=== PATIENT | male | born 2005 | race Caucasian/White ===

== ENCOUNTER 2025-01-13 08:51 | Inpatient (IN) | payer OTHER, SELFPAY ==
[2025-01-13] VITALS (14 sets, daily range): BP systolic 115–155; BP diastolic 63–109; BMI 22.3; BMI 22.1
[2025-01-13] MEDS: NSS 1000 IV ×2 (01:26→03:35)
[2025-01-13] MEDS: ZOFRAN 4 MG IV (01:27)
[2025-01-13 01:32] LABS: % Basophils 0.5 % (0-2); % Eosinophils 0.1 % (0-6); % Immature Granulocytes 0.6 % (0-0.5); % Lymphocytes 10.6 % (20.5-51.1); % Monocytes 6.5 % (1.7-9.3); % Neutrophils 81.7 % (42.2-75.2); Absolute Basophils 0.1 10^3/uL (0-0.2); Absolute Immature Granulocytes 0.1 10^3/uL (0-0.05); Absolute Lymphocytes 1.6 10^3/uL (1.2-3.4); Absolute Neutrophils 12.1 10^3/uL (1.4-6.5); Hematocrit 45.4 % (39.0-52.0); Hemoglobin 16.6 g/dL (13.0-18.0); Mean Corp Hgb Conc. 36.6 g/dL (33.0-37.0); Mean Corpuscular Hgb 32.3 pg (27.0-31.0); Mean Corpuscular Volume 88.3 fL (80.0-94.0); Mean Platelet Volume 11.5 fL (7.4-10.4); Nucleated Red Blood Cells % 0 % (-); Platelet Count 212 10^3/uL (130-400); Red Blood Cell Count 5.14 10^6/uL (4.70-6.10); Red Cell Dist. Width 12.3 % (11.5-14.5); White Blood Cell Count 14.8 10^3/uL (4.8-10.8)
[2025-01-13 01:54] LABS: ALT (SGPT) 88 U/L (0-50); AST (SGOT) 87 U/L (17-59); Alcohol 11 mg/dl; Alkaline Phosphatase 97 U/L (38-126); Blood Urea Nitrogen 15 mg/dl (9-20); Calcium 10.4 mg/dl (8.4-10.2); Carbon Dioxide < 5 mmol/L (22-30); Chloride 107 mmol/L (98-107); Estimated Creatinine Clearance 97 ml/min; Glucose 69 mg/dl (70-99); Potassium 5.2 mmol/L (3.5-5.1); Sodium 142 mmol/L (135-145); Total Bilirubin 1.5 mg/dl (0.2-1.3); Total Protein 9.6 g/dl (6.3-8.2); eGFR > 60.00
[2025-01-13 02:03] LABS: Albumin 6.1 g/dl (3.5-5.0)
[2025-01-13 02:15] LABS: Troponin I < 0.012 ng/ml
--- NOTE | 2025-01-13 04:55 | ED.GENMED ---
History of Present Illness
General
Chief Complaint: Vomiting Blood
Source: patient
Exam Limitations: none
Time Seen by Provider: 01/13/25 00:52
Nursing documentation reviewed up to this point in time: agreed with
History of Present Illness
History of Present Illness:
Note:
CHIEF COMPLAINT(S)
Hematemesis and inability to retain oral intake.
HISTORY OF PRESENT ILLNESS
The patient is a 19-year-old male who presents with a significant episode of hematemesis. The onset of symptoms began around 10:30 or 11 PM when he awoke from sleep due to nausea and subsequently vomited. The initial emesis was painful and
persisted, leading to the presence of blood in the vomit. The patient describes the vomitus as dark and notes a change from earlier in the day when he consumed fruit punch. The emesis has been severe enough to prevent the retention of food or
liquids. There is an associated history of regular alcohol consumption, averaging five to six drinks per day, which began approximately one year ago, coinciding with his first year in college. The patient reports infrequent use of marijuana and rare
tobacco use. He denies the use of any prescribed medications on a regular basis.
SOCIAL HISTORY
The patient consumes alcohol regularly, with an intake of approximately five to six drinks daily over the past year. He reports occasional marijuana use and infrequent tobacco consumption.
MEDICATIONS
The patient is not currently taking any medications.
PLAN
Evaluate the patient for potential causes of gastrointestinal bleeding. Consider necessary diagnostic tests such as endoscopy or relevant imaging to ascertain the source of bleeding.
DIFFERENTIAL DIAGNOSIS
The Differential Diagnosis includes, in no particular order and is not limited to:
1. Peptic ulcer disease
2. Gastritis
3. Esophageal varices
4. Batool-Jean tear
5. Esophagitis
6. Alcohol-related liver disease
7. Gastroesophageal reflux disease (GERD)
8. Esophageal carcinoma
9. Coagulopathy-related bleeding
10. Stress-induced mucosal disease
CARE-UPDATE
01/13/25 - 06:42
Discussed with nephrology, who advises repeating blood work in 24 hours. Consider observational admission based on results.
CARE-UPDATE
01/13/25 - 07:12
Patient will be admitted for an observational period as recommended by the hospitalist.
Disposition:
SUMMARY OF ENCOUNTER
The patient, a 19-year-old male, presented to the emergency department due to vomiting and suspected hematemesis. He reported a history of regular alcohol consumption for the past year. During the previous evening, he experienced what looked like
hematemesis, although he had consumed red liquids prior to the vomiting episode. Laboratory results revealed a persistently low bicarbonate level despite administration of two liters of fluids.
DISPOSITION
The patient will be admitted for continued observation and management.
CONSIDERATION FOR ADMISSION
Admission recommended due to the patients persistent low bicarbonate levels and vomiting.
MANAGEMENT OF THE PATIENTS CARE WAS DISCUSSED WITH
Discussions held with nephrology regarding patients condition, who advised repeating laboratory work in 24 hours.
PLAN
The plan includes admission to the hospital for observation and continuation of care with monitoring of bicarbonate levels and potential source of gastrointestinal bleeding.
INDEPENDENT INTERPRETATION OF TESTS
My independent interpretation indicates the patient has a low bicarbonate level, which remains low despite fluids.
MEDICAL DECISION MAKING
Number and Complexity of Problems Addressed: The patient presented with persistent vomiting and a low bicarbonate level, potentially related to alcohol use.
Data: Reviewed HPI and lab results indicating low bicarbonate despite fluid administration, with nephrology consulted for further input.
Risk: High alcohol consumption and unresolved biochemical abnormality increased the complexity and risk, prompting admission for close monitoring and additional testing.
Review of Systems
Review of Systems
Allergies reviewed?: Yes
Other source history: family
All Other Systems: ROS reviewed and negative except as documented in HPI and ROS
Constitutional: Reports no symptoms
EENT: Reports no symptoms
Respiratory: Reports no symptoms
Cardiac: Reports no symptoms
ABD/GI: Reports nausea and vomiting
: Reports no symptoms
Musculoskeletal: Reports no symptoms
Skin: Reports no symptoms
Neurological: Reports no symptoms
Endocrine: Reports no symptoms
Hematologic/Lymphatic: Reports no symptoms
Psychiatric: Reports no symptoms
Phy Exam
General Physical Exam
General Presentation: moderate distress
General age: appears stated age
General Skin: warm and dry
General Habitus: normal
General Mental: alert
General Hydration: appears well hydrated
ENT Exam
ENT Exam: EOMI, pharynx normal, neck supple and normocephalic
Eye Exam
Eye Exam: PERRL, cornea clear and conjunctiva normal
Cardiovascular Exam
Cardiovascular Exam: regular rate/rhythm, no edema, no murmur and normal peripheral pulses
Pulmonary Exam
Pulmonary Exam: lungs clear, no respiratory distress, no rales, no crackles, no rhonchi, no stridor, no wheezing and no cough
Gastrointestinal Exam
Gastrointestinal Exam: normal bowel sounds, non tender, soft, no organomegaly, no pulsatile mass and non distended
Neurological Exam
Neurological Exam: alert, oriented x3, no motor deficits and speech normal
Musculoskeletal Exam
Musculoskeletal Exam: full ROM and no edema
Skin Exam
Skin Exam: normal color, warm/dry, no rash and no petechia
Psychiatric Exam
Psychiatric Exam: normal mood/affect
Course
Orders/Labs/Results
Orders:
Orders
01/13/25 00:11
Electrocardiogram (*1) Urgent
Reason for Study: Palpitations
EKG- Treatment ONCE
01/13/25 00:52
Alcohol Urgent
Complete Blood Count/With Diff Urgent
Comprehensive Metabolic Panel Urgent
01/13/25 00:55
Add On- LAB Urgent
Tests Added?: alcohol
01/13/25 01:09
CT Chest PE Study Urgent
Comment:
Reason For Exam: hemptysis, palpitatipons
01/13/25 01:15
0.9% Sodium Chloride 1000 ml [Nss] 1,000 ml IV BOLUS
Ondansetron Injectable [Zofran] 4 mg IV NOW STA
01/13/25 01:24
Troponin I Urgent
01/13/25 03:34
0.9% Sodium Chloride 1000 ml [Nss] 1,000 ml IV BOLUS
01/13/25 04:36
Comprehensive Metabolic Panel Urgent
01/13/25 05:56
Comprehensive Metabolic Panel Urgent
01/13/25 07:12
Acetaminophen Urgent
Salicylate Urgent
Urinalysis Reflex To Culture Urgent
Urine Drug Abuse Screen Urgent
Venous Blood Gas Urgent
%Oxygen/Room Air: ra
01/13/25 07:25
Pantoprazole [Protonix IV] 40 mg IV NOW STA
Abnormal Lab Results
01/13/25 01/13/25 01/13/25
00:52 04:36 05:56
WBC 14.8 H 10^3/uL
(4.8-10.8)
MCH 32.3 H pg
(27.0-31.0)
MPV 11.5 H fL
(7.4-10.4)
Abs Immat Gran (auto) 0.1 H 10^3/uL
(0-0.05)
Absolute Neuts (auto) 12.1 H 10^3/uL
(1.4-6.5)
Absolute Monos (auto) 1.0 H 10^3/uL
(0.1-0.6)
Immature Gran % 0.6 H %
(0-0.5)
Neutrophils % 81.7 H %
(42.2-75.2)
Lymphocytes % 10.6 L %
(20.5-51.1)
Potassium 5.2 H mmol/L
(3.5-5.1)
Chloride 111 H mmol/L 108 H mmol/L
(98-107) (98-107)
Carbon Dioxide < 5 L* mmol/L 8 L* mmol/L 9 L* mmol/L
(22-30) (22-30) (22-30)
Glucose 69 L mg/dl 63 L mg/dl 61 L mg/dl
(70-99) (70-99) (70-99)
Calcium 10.4 H mg/dl
(8.4-10.2)
Total Bilirubin 1.5 H mg/dl
(0.2-1.3)
AST 87 H U/L
(17-59)
ALT 88 H U/L 73 H U/L 71 H U/L
(0-50) (0-50) (0-50)
Total Protein 9.6 H g/dl
(6.3-8.2)
Albumin 6.1 H g/dl
(3.5-5.0)
01/13/25 00:52
01/13/25 05:56
Vital Signs
Initial and Last Documented VS:
Initial Vital Signs
Temp Pulse Resp BP Pulse Ox
97.5 F 134 18 139/96 99
01/13/25 00:18 01/13/25 00:18 01/13/25 00:18 01/13/25 00:18 01/13/25 00:18
Last Documented Vital Signs
Temp Pulse Resp BP Pulse Ox
98.2 F 97 21 120/70 97
01/13/25 02:31 01/13/25 07:00 01/13/25 07:00 01/13/25 07:00 01/13/25 07:00
*Pulse Oximetry
Patient hypoxic: no
*Critical Care Note
Total Time (30-74mins, 75-104mins- exclusive of procedures): 40 (Critical care statement: A total of 40 minutes of critical care time was provided for this patient. This time is separate from time utilized to perform the aforementioned documented
procedures. Aggregate critical care time includes only time during which I was engaged in work directl)
Update Note
Update Note:
NAME: WHITNEY ROBERTSON
DATE OF EXAM: 01/13/2025
Patient No: [id number]
Physician: JANEE^Lyudmila
Date of : 2005
Past Medical History (entered by Technologist):
Reason For Exam (entered by Technologist):
Other Notes (entered by Technologist): pt arrives c/o palpitations, cough, and throwing up blood. pt forcefully coughing in triage.
No prior
Additional Information (per [facility]iologist):
CTA chest with IV contrast
IMPRESSION:
No pulmonary embolus to the lobar level. Limited assessment of the segmental and subsegmental branches secondary to extensive artifact.
Artifact limits assessment of the aorta. Mild cardiomegaly. Lungs clear.
No pneumothorax or pleural effusion. No suspicious lymphadenopathy. Thyroid gland is normal. Hepatic steatosis and hepatomegaly.
Esophagus is decompressed. No pneumomediastinum.
Finalized at 3:38 AM EST
Tereso Christensen M.D.
This report has been electronically signed and verified by the Radiologist whose name is printed above.
ED Attending Note
-
Portions of this chart may have been created with voice recognition software.� Occasional wrong word or��sound alike� substitutions may have occurred due to the inherent limitations of voice recognition software.
Discharge Plan
Departure
Patient Disposition: Admit
Date of Disposition: 01/13/25
Time of Disposition: :25
Admit to: Telemetry
Presentation/result/management discussed w/ accepting MD/DO: Hospitalist
Discharge Problem:
Hypocarbia, Vomiting, Chronic alcohol use, Possible hematemesis
Prescriptions:
No Action
No Current Medications
0
Referrals:
NONE,* [Family Provider, Internal Medicine]
Interventions
Interventions:
*General Assessment Last Done: 01/13/25 00:18
*Neglect/Abuse Screening Last Done: 01/13/25 00:18
*ED- Fall Risk Assessment Last Done: 01/13/25 07:07
*ED COVID-19 Vaccine History Last Done: 01/13/25 07:07
FG-Shgizx-Rqvuqhpqjx Assessment Last Done: 01/13/25 00:56
ED- Cardiac Assessment Last Done: 01/13/25 00:56
ED- Neurological Assessment Last Done: 01/13/25 00:56
ED-Psychological Assessment Last Done: 01/13/25 00:56
ED- Pulmonary Assessment Last Done: 01/13/25 00:56
Discharge Date and Time
Print Language: FRENCH
[2025-01-13 05:02] LABS: ALT (SGPT) 73 U/L (0-50); AST (SGOT) 58 U/L (17-59); Albumin 4.8 g/dl (3.5-5.0); Alkaline Phosphatase 78 U/L (38-126); Blood Urea Nitrogen 14 mg/dl (9-20); Calcium 8.7 mg/dl (8.4-10.2); Carbon Dioxide 8 mmol/L (22-30); Chloride 111 mmol/L (98-107); Estimated Creatinine Clearance 118 ml/min; Glucose 63 mg/dl (70-99); Potassium 4.9 mmol/L (3.5-5.1); Sodium 137 mmol/L (135-145); Total Bilirubin 0.9 mg/dl (0.2-1.3); eGFR > 60.00
[2025-01-13 06:36] LABS: ALT (SGPT) 71 U/L (0-50); AST (SGOT) 59 U/L (17-59); Albumin 4.8 g/dl (3.5-5.0); Alkaline Phosphatase 63 U/L (38-126); Blood Urea Nitrogen 13 mg/dl (9-20); Calcium 8.7 mg/dl (8.4-10.2); Carbon Dioxide 9 mmol/L (22-30); Chloride 108 mmol/L (98-107); Estimated Creatinine Clearance 118 ml/min; Glucose 61 mg/dl (70-99); Potassium 5.1 mmol/L (3.5-5.1); Sodium 138 mmol/L (135-145); Total Protein 7.1 g/dl (6.3-8.2); eGFR > 60.00
[2025-01-13 07:31] LABS: Venous Blood Gas B.E. -12.3 mmol/L (-4 to +4); Venous Blood Gas HCO3 12.7 mmol/L (22-27); Venous Blood Gas pCO2 27 mmHg (35-48); Venous Blood Gas pH 7.28 (7.32-7.43); Venous Blood Gas pO2 185 mmHg (30-50)
[2025-01-13] MEDS: PROTONIX IV 40 MG IV (07:31)
[2025-01-13 07:54] LABS: Acetaminophen < 10 ug/ml (10-30); Salicylate < 1.0 mg/dl (2.0-20.0)
--- NOTE | 2025-01-13 08:32 | HPS.HSE ---
Family Physician
-
Family Physician: * NONE
Chief Complaint
-
Vomiting
History of Present Illness
19-year-old male with alcohol use disorder presenting to the hospital with persistent vomiting. He admits to drinking on a daily basis, vodka. Denies history of withdrawal symptoms.
States he started having intermittent nausea and vomiting yesterday during the day but worsened last night around 11 PM. He claims he drank 2 or 3 shots of vodka up until 3 PM yesterday but subsequently developed worsening nausea and vomiting into
the night. Also drank red-colored punch and subsequently started vomiting red liquid that look like fruit punch but then the consistency changed and he felt that it might be blood.
Denied any chest pain but had some abdominal discomfort.
Denies melena or hematochezia.
Denies lightheadedness or dizziness.
Denies history of GI bleed.
During my assessment the patient states he already feels better after IV fluid administration in the emergency room.
Medical History
Past Medical History
Past Medical History: Reports Other
Additional Past Medical History:
Alcohol use disorder
Splenic rupture with hematoma
Isolated seizure at the age of 14
Past Surgical History: Reports Other
Additional Past Surgical History:
Abdominal hematoma drainage
Social History
Tobacco: Vaping
Alcohol: Daily
Drug: Marijuana
Personal: Single
Employment: Not Employed
Family History
Family History: Not pertinent
Allergies / Home Medications
Allergies reflects when Allergies were last updated in [facility]
Home Medications with original date entered in [facility]
Allergy/Medication List:
Allergies
Allergy/AdvReac Type Severity Reaction Status Date / Time
No Known Allergies Allergy Unverified 01/13/25 00:22
Home Medications
No Meds [No Current Medications] 01/13/25
Review of Systems
-
History Source: Patient
A 12 point ROS was completed and negative except as noted: Yes
Abdomen/GI: Reports Nausea and Vomiting
Physical Exam
Vital Signs
Vital Signs
Temp Pulse Resp BP Pulse Ox
98.2 F 97 23 133/101 97
01/13/25 02:31 01/13/25 08:00 01/13/25 08:00 01/13/25 08:00 01/13/25 07:00
Physical Exam
General: Well Developed, Well Nourished, No Apparent Distress and Comfortable
HEENT: NormoCephalic, Anicteric and Moist mucous membranes
Respiratory: Clear
Cardiac: S1/S2 and Regular Rhythm
GI: Soft, Non Tender and Non Distended
Genito-urinary: Deferred by me
Musculoskeletal: No Clubbing, No Cyanosis and No Edema
Skin: Warm and Dry
Neuro: AO x 3
Hematologic/Lymphatic: No Lymphadenopathy
Psych: Calm
Laboratory Results
-
01/13/25 00:52
01/13/25 05:56
Laboratory Results
Total Bilirubin 1.0 mg/dl (0.2-1.3) 01/13/25 05:56
AST 59 U/L (17-59) 01/13/25 05:56
ALT 71 U/L (0-50) H 01/13/25 05:56
Alkaline Phosphatase 63 U/L (38-126) 01/13/25 05:56
Troponin I < 0.012 ng/ml 01/13/25 01:24
Impression/Plan
-
Alcoholic ketoacidosis -high anion gap. Admission bicarbonate less than 5, repeat 9. Admit to telemetry. Start IV bicarbonate infusion. Nephrology contacted.
Monitor BMP. Alcohol level 11 on admission.
Severe alcohol use disorder -drinks vodka daily. Last drink was January 12. Monitor closely for withdrawal symptoms. Initiate alcohol withdrawal protocol. Thiamine and folic acid. Check magnesium, phosphate.
Acute hepatitis -possibly mild alcohol induced hepatitis. Transaminases now trending down. Check PT/INR to calculate discriminant function.
Intractable vomiting -suspect due to alcoholic ketoacidosis. Although he may have had hematemesis, I doubt he has clinically significant GI bleed. Monitor hemoglobin. He is hemodynamically stable. IV Protonix ordered.
Hyperkalemia -improving.
Hypercalcemia -improved.
Marijuana use disorder -abstinence recommended.
Active vaping -abstinence recommended.
Full code
[2025-01-13 09:40] LABS: Magnesium 1.8 mg/dl (1.6-2.3); Phosphorus 3.8 mg/dl (2.5-4.5)
[2025-01-13] MEDS: SODIUM BICARBONATE 1150 MEQ IV ×2 (10:38→17:39)
--- NOTE | 2025-01-13 10:50 | W.CON.NEPH ---
Consultation
-
Date/Time Consultation Requested: 01/13/2025 9:00 AM
Date/Time Consultation Performed: 01/13/2025 1050 AM
Requesting Provider: Dr. Zabala
Performing Provider: Dr. Wood
Reason for Consultation: Metabolic acidosis
Medical History
-
Chief Complaint: Metabolic acidosis
History of Present Illness:
The patient is a 19-year-old male with alcohol use disorder presenting to the hospital with persistent vomiting. He admits to drinking on a daily basis, vodka. Denies history of withdrawal symptoms.
States he started having intermittent nausea and vomiting yesterday during the day but worsened last night around 11 PM. He claims he drank 2 or 3 shots of vodka up until 3 PM yesterday but subsequently developed worsening nausea and vomiting into
the night. Also drank red-colored punch and subsequently started vomiting red liquid that look like fruit punch but then the consistency changed and he felt that it might be blood. On presentation to the hospital the patient had a carbon dioxide
level less than 5 and nephrology was asked to see the patient.
Past Medical History
Chronic alcohol use
Social History
Tobacco: Vaping
Alcohol: Chronic Alcoholic
Drug: Marijuana
Family History
Family History: Not Pertinent
Allergies / Home Medications
Allergy/AdvReac Type Severity Reaction Status Date / Time
No Known Allergies Allergy Unverified 01/13/25 00:22
�Medication �Instructions �Recorded �Confirmed �Type
No Meds [No Current Medications] 01/13/25 01/13/25 History
Review of Systems
-
Denied any chest pain but had some abdominal discomfort.
Denies melena or hematochezia.
Denies lightheadedness or dizziness.
Denies history of GI bleed.
History Source: Patient
All other systems: Negative unless noted
Abdomen/GI: Vomiting (Now no further emesis since admission)
Physical Exam
Vital Signs
Vital Signs
Temp Pulse Resp BP Pulse Ox
97.3 F 99 18 137/92 99
01/13/25 10:26 01/13/25 10:26 01/13/25 10:26 01/13/25 10:26 01/13/25 10:26
Lab Results
01/13/25 00:52
01/13/25 00:52
WBC 14.8 10^3/uL (4.8-10.8) H 01/13/25 00:52
RBC 5.14 10^6/uL (4.70-6.10) 01/13/25 00:52
Hgb 16.6 g/dL (13.0-18.0) 01/13/25 00:52
Hct 45.4 % (39.0-52.0) 01/13/25 00:52
Plt Count 212 10^3/uL (130-400) 01/13/25 00:52
eGFR > 60.00 01/13/25 05:56
Phosphorus 3.8 mg/dl (2.5-4.5) 01/13/25 05:56
Albumin 4.8 g/dl (3.5-5.0) 01/13/25 05:56
Physical Exam
General: AOx3, Nontoxic , NAD
HEENT: PERRL, EOMI, Anicteric, Conjunctivae Clear, Ear/Nose Intact, Hearing Normal, Oropharynx Clear/Moist, Dentition Intact, Facial Symmetry, Neck Supple, Neck: Trachea Midline, No JVD and No Thyromegaly, no Bruits
Respiratory: Clear to auscultation bilaterally with normal lung excursion
Cardiac: S1/S2 and Regular Rate/Rhythm
Breast: Deferred by me
Abdomen: Soft, Nontender, Nondistended, Normal Bowel Sounds and No Hepatosplenomegaly
Rectal: Deferred by Provider
Genito-urinary: No Costovertebral Tenderness
Extremities: No Clubbing, No Cyanosis and No Edema
Skin: No Rash or open lesions
Neuro: Nonfocal/Grossly Intact, CN II-XII (Intact) and Strength (Musculoskeletal exam 5 out of 5 both upper and lower extremities)
Hematologic/Lymphatic: No Cervical Lymphadenopathy, No Submandibular Lymphadenopathy and No Supraclavicular Lymphadenopathy
Psych: Mood/afflect pleasant, Insight/judgement good and Appropriate
Vascular: plus 2 pedal and radial pulses
Data Reviewed
-
Radiology: Report Reviewed by me (CT scan of chest reviewed)
Medical Tests (Nuc Med, Echo etc): Other (EKG personally reviewed sinus tachycardia 116 beats per minute)
Labs: Labs Reviewed by me
Assessment/Plan
-
Impression
Alcohol abuse
Intractable vomiting on presentation
Gapped metabolic acidosis (AG >30)
Plan:
- Gapped metabolic acidosis likely due to significant ingestion of alcohol and subsequent alcoholic ketoacidosis
- Sodium bicarb now rising from less than 5-11
Maintain sodium bicarb infusion for volume resuscitation and correction of acidosis (currently at 150 cc/h)
-check UA
[2025-01-13 10:51] LABS: INR 1.03; PT 13.8 Sec (11.4-14.6)
[2025-01-13] MEDS: FOLVITE 1 MG PO (11:07)
[2025-01-13 11:11] LABS: Blood Urea Nitrogen 12 mg/dl (9-20); Calcium 9.2 mg/dl (8.4-10.2); Carbon Dioxide 11 mmol/L (22-30); Chloride 108 mmol/L (98-107); Estimated Creatinine Clearance 106 ml/min; Glucose 69 mg/dl (70-99); Potassium 4.7 mmol/L (3.5-5.1); Sodium 138 mmol/L (135-145); eGFR > 60.00
[2025-01-13 11:23] LABS: GGTP 64 U/L (15-73)
[2025-01-13 11:30] LABS: B-Hydroxybutyrate 5.95 mmol/L (0.02-0.27)
--- NOTE | 2025-01-13 13:48 | PTCARENOTE ---
Rec'd pt from ER. walked from stretcher to bed. Denies pain or nausea. IVF with bicarb started as ordered. Oriented pt to room. Call escobedo in reach
--- NOTE | 2025-01-13 15:32 | CM ---
school manager reviewed patient's chart and met with patient , patient states that he is a student at [employer], studying Accounting, currently he is living with his girlfriend, patient is independent with adl's and ambulation, no dme, case
supermarket manager received a consult for substance abuse counseling and offered patient a referral to [facility], however patient declined referral stating that he will look into some options himself after discharge. Plan home when stable.
Plan; Home when stable, to girlfriends house.
PCP: None
Pharmacy: [facility] in [facility]
.
[2025-01-13] MEDS: THIAMINE INJECTION 200 MG IV (19:43)
[2025-01-13 21:04] LABS: Urine Albumin Negative (Neg - Trace); Urine Bilirubin Negative (Negative); Urine Character Clear (Clear); Urine Color Yellow; Urine Glucose Negative (Negative); Urine Ketone 3+ (Negative); Urine Leukocyte Negative (Negative); Urine Nitrite Negative (Negative); Urine Occult Blood Negative (Negative); Urine Urobilinogen Negative (Neg - 1+); Urine pH 6.5 (5.0-9.0)
[2025-01-13 21:25] LABS: Amphetamines Negative (Negative); Barbiturates Negative (Negative); Benzodiazepines Negative (Negative); Buprenorphine Negative (Negative); Cocaine Negative (Negative); Marijuana Positive (Negative); Methadone Negative (Negative); Methamphetamines Negative (Negative); Opiates Negative (Negative); Phencyclidine Negative (Negative); Tricyclic Antidepressants Negative (Negative)
--- NOTE | 2025-01-13 22:44 | PTCARENOTE ---
Pt's girlfriend's father (who pt lives with) called nurses station stating pt contacted gf and was expressing thoughts of harming himself. This RN went to check on pt (without informing pt about phone call- per gf father request) and asked about any
thoughts of suicide and pt verbalized no thoughts of suicide (but did state he's had suicide ideation in the past). Pt states he's been having a fight with his girlfriend and is upset but doesn't want to actually hurt himself. Pt is asking for
something to sleep, CHAVO Sibley made aware.
[2025-01-13] MEDS: BENADRYL 25 MG PO (22:54)
[2025-01-14 03:58] VITALS: BP 129/76
[2025-01-14 07:00] VITALS: BP 147/99
[2025-01-14 08:01] LABS: Hematocrit 42.1 % (39.0-52.0); Hemoglobin 15.3 g/dL (13.0-18.0); Mean Corp Hgb Conc. 36.3 g/dL (33.0-37.0); Mean Corpuscular Hgb 31.9 pg (27.0-31.0); Mean Corpuscular Volume 87.9 fL (80.0-94.0); Mean Platelet Volume 10.5 fL (7.4-10.4); Platelet Count 152 10^3/uL (130-400); Red Blood Cell Count 4.79 10^6/uL (4.70-6.10); Red Cell Dist. Width 11.9 % (11.5-14.5); White Blood Cell Count 9.1 10^3/uL (4.8-10.8)
[2025-01-14 08:02] LABS: % Basophils 0.4 % (0-2); % Eosinophils 0.5 % (0-6); % Immature Granulocytes 0.3 % (0-0.5); % Lymphocytes 13.1 % (20.5-51.1); % Monocytes 9.6 % (1.7-9.3); % Neutrophils 76.1 % (42.2-75.2); Absolute Eosinophils 0.1 10^3/uL (0-0.7); Absolute Lymphocytes 1.2 10^3/uL (1.2-3.4); Absolute Monocytes 0.9 10^3/uL (0.1-0.6); Absolute Neutrophils 6.9 10^3/uL (1.4-6.5); Nucleated Red Blood Cells % 0 % (-)
[2025-01-14 08:27] LABS: Blood Urea Nitrogen 6 mg/dl (9-20); Calcium 9.6 mg/dl (8.4-10.2); Carbon Dioxide 24 mmol/L (22-30); Chloride 101 mmol/L (98-107); Estimated Creatinine Clearance 118 ml/min; Glucose 75 mg/dl (70-99); Phosphorus 2.6 mg/dl (2.5-4.5); Potassium 3.9 mmol/L (3.5-5.1); Sodium 141 mmol/L (135-145); eGFR > 60.00
[2025-01-14] MEDS: PROTONIX IV 40 MG IV (08:58)
[2025-01-14] MEDS: THIAMINE INJECTION 200 MG IV (08:58)
[2025-01-14] MEDS: FOLVITE 1 MG PO (08:58)
[2025-01-14] MEDS: NSS (PRESERVATIVE FREE) 10 ML IV (08:58)
--- NOTE | 2025-01-14 10:36 | W.PN.HOSP.TC ---
Today's Communication/Plan
-
dc to home today
Assessment / Plan
Assessment / Plan
Assessment:
Alcoholic ketoacidosis - high anion gap. Admission bicarbonate less than 5, repeat 9 and now normal after IV bicarbonate infusion. Nephrology ok with discharge today.
Severe alcohol use disorder -drinks vodka daily. Last drink was January 12. Monitor closely for withdrawal symptoms. Initiate alcohol withdrawal protocol. Thiamine and folic acid. normal magnesium, phosphate.
Acute hepatitis - possibly mild alcohol induced hepatitis. Transaminases now trending down
Intractable vomiting - suspect due to alcoholic ketoacidosis. Although he may have had hematemesis, I doubt he has clinically significant GI bleed. Monitor hemoglobin. He is hemodynamically stable.
Hyperkalemia -improving.
Hypercalcemia -improved.
Marijuana use disorder -abstinence recommended.
Active vaping -abstinence recommended.
DVT ppx: Lovenox
Code: Full
More than 30 minutes spent in discharge including
Final examination of the patient
Summarizing hospital stay
Instructions for continuing care to all relevant caregivers
Preparation of discharge records, prescriptions, and referral forms
Total time spent (in minutes): 41
Anticipated Discharge: Today
Subjective/Interval History
-
Date of Service: January 14, 2025
resting comfortably, no complaints at present
Objective Data
-
Labs:
Laboratory Results
01/14/25
07:20
WBC 9.1
Hgb 15.3
Hct 42.1
Plt Count 152 D
Sodium 141
Potassium 3.9
Chloride 101
Carbon Dioxide 24
BUN 6 L
Creatinine 0.9
Glucose 75
Calcium 9.6
Vital Signs:
Vital Signs
Temp Pulse Resp BP Pulse Ox
98.4 F 88 16 147/99 98
01/14/25 07:00 01/14/25 07:00 01/14/25 07:00 01/14/25 07:00 01/14/25 07:00
I&O
01/13/25 01/14/25 01/15/25
06:59 06:59 06:59
Intake Total 1240 / 1240
Balance 1240 / 1240
Physical Exam
-
General: No Apparent Distress
HEENT: Normocephalic and Atraumatic
Respiratory: Negative Wheezes
Cardiac: Regular Rhythm and S1/S2
GI: Soft and Nontender
Genito-urinary: No Costovertebral Tender
Musculoskeletal: No Edema
Neuro: AO x 3
Psych: Calm
Data Reviewed
-
Total Time Spent with Patient (in minutes): 42
Labs: Labs Reviewed by me
[2025-01-14 11:00] VITALS: BP 132/87
--- NOTE | 2025-01-14 11:52 | W.PN.NEPH.PH ---
Today's Communication / Plan
-
ok to d/c
Assessment/Plan
-
Impression
Alcohol abuse
Intractable vomiting on presentation
Gapped metabolic acidosis (AG >30)
Plan:
- Gapped metabolic acidosis likely due to significant ingestion of alcohol and subsequent alcoholic ketoacidosis
met acidosis is resolved and off IVF
reviewed imp of no ETOH and also set up PCP
ok to d/c
d/w primary
-
-
Date of Service: January 14, 2025
CC / HPI / ROS
-
Chief Complaint:
met acidosis
History of Present Illness:
cr better at 0.9
Bp stable
met acidosis is resovled
Review of Systems:
no cp or sob
feels well
Labs
-
Labs:
WBC 9.1 10^3/uL (4.8-10.8) 01/14/25 07:20
RBC 4.79 10^6/uL (4.70-6.10) 01/14/25 07:20
Hgb 15.3 g/dL (13.0-18.0) 01/14/25 07:20
Hct 42.1 % (39.0-52.0) 01/14/25 07:20
Plt Count 152 10^3/uL (130-400) D 01/14/25 07:20
Sodium 141 mmol/L (135-145) 01/14/25 07:20
Potassium 3.9 mmol/L (3.5-5.1) 01/14/25 07:20
Chloride 101 mmol/L (98-107) 01/14/25 07:20
Carbon Dioxide 24 mmol/L (22-30) 01/14/25 07:20
BUN 6 mg/dl (9-20) L 01/14/25 07:20
Creatinine 0.9 mg/dL (0.7-1.3) 01/14/25 07:20
eGFR > 60.00 01/14/25 07:20
Glucose 75 mg/dl (70-99) 01/14/25 07:20
Calcium 9.6 mg/dl (8.4-10.2) 01/14/25 07:20
Phosphorus 2.6 mg/dl (2.5-4.5) 01/14/25 07:20
Albumin 4.8 g/dl (3.5-5.0) 01/13/25 05:56
Physical Exam
-
Vital Signs:
Vital Signs
Temp Pulse Resp BP Pulse Ox
98.1 F 73 16 132/87 98
01/14/25 11:00 01/14/25 11:00 01/14/25 11:00 01/14/25 11:00 01/14/25 11:00
Cardiovascular:: Regular rate and rhythm
Respiratory:: Bilateral: CTA
Lung Excursion:: Normal
Abdomen:: Nontender and Soft
Extremity Edema:: None: Bilateral:
Hernandez Catheter: No
--- NOTE | 2025-01-14 14:04 | W.DS.TRANS ---
DC Summary - Automotive Paint Technician
-
Discharge Instructions:
Discharge Diagnosis/Procedures alcohol/starvation ketoacidosis. nausea/vomiting
from ketoacidosis which worsened the acidosis
Diet Regular
Activity As tolerated
Instructions:
Stand-Alone Forms:
Changes to Home Medications: No
Discharge Medications:
DC Medications w/original date entered in [facility]
No Meds [No Current Medications] 01/13/25
Home Medication Changes
Pending Results: No
Total time spent discharging patient (in min): 41
== END 2025-01-14 15:08 | disposition home or self-care (01) | DRG 897 ==
LOC: 4 WEST ACU 08:51
PROVIDERS: ADMITTING PHYSICIAN Hospitalist; ATTENDING PHYSICIAN Internal Medicine; CONSULT PHYSICIAN Specialist; EMERGENCY PHYSICIAN Student in an Organized Health Care Education/Training Program
DX: F10.20 Alcohol dependence, uncomplicated (principal); E87.29 Other acidosis; K92.0 Hematemesis; K70.10 Alcoholic hepatitis without ascites; F12.90 Cannabis use, unspecified, uncomplicated; K76.0 Fatty (change of) liver, not elsewhere classified; Y90.0 Blood alcohol level of less than 20 mg/100 ml; E87.5 Hyperkalemia; E83.52 Hypercalcemia
CPT/HCPCS: 71275; 80048; 80053; 80143; 80179; 80306; 81003; 82010; 82077; 82805; 82977; 83735; 84100; 84484; 85025; 85610; 93005; 96361; 96374; 96375; 99291; Q9967